=== PATIENT | female | born 1990 | race Caucasian/White ===

== ENCOUNTER 2023-02-06 08:29 | Emergency (ER) | payer MEDICAID ==
[~2023-02-06] VITALS: Ht 162.6 cm; Wt 106.0 kg
[2023-02-06] MEDS ORDERED: ibuprofen 200mg tablet PO ONE (09:15)
[2023-02-06 09:42] LABS: BILIRUBIN,URINE NEGATIVE (Neg); CLARITY,URINE SLIGHTLY CLOUDY (Clear); COLOR,URINE YELLOW (Yellow); GLUCOSE, URINE NEGATIVE (Neg); KETONES,URINE TRACE mg/dl (Neg); LEUKOCYTE ESTERASE ,URINE NEGATIVE (Neg); NITRITES, URINE NEGATIVE (Neg); OCCULT BLOOD,URINE LARGE (Neg); PROTEIN,URINE 30 mg/dl (Neg); UROBILINOGEN,URINE 0.2 E.U/dL (0.2-1.0)
[2023-02-06 09:43] LABS: URINE HCG NEGATIVE (NEG)
[2023-02-06 09:47] LABS: UA COLLECTION TYPE CLN CATCH MIDSTREAM
[2023-02-06 09:50] LABS: MUCUS STRANDS MANY /LPF (Neg); SQUAMOUS EPITHELIAL CELL,UR MANY /LPF (FEW)
[2023-02-06 09:51] LABS: RBC,URINE 20-50 /HPF (0-2); TRANSITIONAL EPI CELLS,URINE FEW /HPF; WBC,URINE 0-4 /HPF (0-4)
[2023-02-06 09:52] LABS: BACTERIA,URINE 2+ /HPF (Neg)
[2023-02-06] MEDS ORDERED: normal saline 1000ml 1,000 ML IV ONE (11:15)
[2023-02-06 11:44] LABS: BASOPHILS % (AUTO) 0.2 % (0-1); EOSINOPHILS % (AUTO) 0.4 % (0-6); HEMATOCRIT 42.9 % (35.0-45.0); HEMOGLOBIN 14.5 g/dl (12.0-16.0); LYMPHOCYTES # (AUTO) 0.7 X10'3 (1.1-4.8); MEAN CORPUSCULAR HGB CONC 33.7 g/dL (33.0-36.5); MEAN CORPUSCULAR VOLUME 82.9 FL (78-98); MEAN PLATELET VOLUME 7.9 FL (7.4-10.4); MONOCYTES # (AUTO) 0.6 X10'3 (0-0.9); MONOCYTES % (AUTO) 5.6 % (2-12); NEUTROPHILS # (AUTO) 9.7 X10'3 (1.8-7.7); NEUTROPHILS % (AUTO) 87.8 % (42-75); PLATELET COUNT 272 X10'3 (140-440); RED BLOOD COUNT 5.17 X10'6 (4.20-5.60); RED CELL DISTRIBUTION WIDTH 14.3 % (11.5-14.5); WHITE BLOOD COUNT 11.1 X10'3 (4.5-11.0)
[2023-02-06 11:52] LABS: ALANINE AMINOTRANSFERASE 84 U/L (12-78); ALBUMIN 3.6 G/DL (3.4-5.0); ALBUMIN/GLOBULIN RATIO 0.8 (1.1-1.5); ALKALINE PHOSPHATASE 112 IU/L (46-116); ANION GAP 12 (8-16); ASPARTATE AMINO TRANSFERASE 42 U/L (10-37); BILIRUBIN,TOTAL 0.5 MG/DL (0.1-1.0); BLOOD UREA NITROGEN 6 MG/DL (7-18); BUN/CREATININE RATIO 7.4 (10.0-20.0); CALCIUM 8.6 MG/DL (8.5-10.1); CHLORIDE 99 MMOL/L (99-107); CREATININE 0.81 MG/DL (0.40-0.90); GLUCOSE 153 MG/DL (70-104); POTASSIUM 3.4 MMOL/L (3.5-5.1); SODIUM 133 MMOL/L (135-145); TOTAL CARBON DIOXIDE 22.5 MMOL/L (24-32); eCRCL 86 ML/MIN; eGFR 82 ML/MIN
[2023-02-06] MEDS ORDERED: CefTRIAXone/D5W-Rocephin 1gm 50 ML IV ONE (12:30)
[2023-02-06] MEDS ORDERED: acetaminophen 325mg tablet PO ONE (12:30)
[2023-02-06] MEDS ORDERED: LEVO750T68 PO (12:31)
[2023-02-06 13:50] VITALS: BP 109/73; PULSE 116; RESP 20; TEMP 103.3; O2SAT 96
== END 2023-02-06 16:04 | disposition home or self-care (01) ==
LOC: ER 08:30
DX: N10 Acute pyelonephritis (principal); Z20.822 Contact with and (suspected) exposure to COVID-19
CPT/HCPCS: 36415; 71046; 74176; 80053; 81001; 81025; 85025; 87502; 87503; 87811; 96361; 96365; 99285; J0696; J7030